=== PATIENT | male | born 2000 | race Caucasian/White ===

== ENCOUNTER 2023-04-09 02:01 | Observation (INO) | payer BC, SELFPAY ==
[2023-04-09 02:48] LABS: Absolute Lymphocytes (CBC) 1.9 K/uL (0.7-4.9); Hematocrit 43.9 % (39.6-49.0); Lymphocytes % 15.4 % (15.3-44.8); MCV 84.2 fL (80-100); MPV 8.6 fL (7.6-11.3); Platelets 209 thou/uL (152-406); RBC Red Blood Cell Count 5.21 M/uL (4.33-5.43)
[2023-04-09] MEDS ORDERED: MORPHINE 4 MG/ML SYR ONE ×2 (02:55→06:45)
[2023-04-09] MEDS ORDERED: PROMETHAZINE INJ 25 MG/ML AMP ONE (02:55)
[2023-04-09] MEDS ORDERED: NA CHLORIDE 0.9% 1,000 ML ONE ×2 (02:55→04:09)
[2023-04-09 03:05] LABS: Albumin 4.3 g/dL (3.4-5.0); Bilirubin Total 1.2 mg/dL (0.2-1.0); Potassium 3.9 mEq/L (3.5-5.1); Protein, Total 7.8 g/dL (6.4-8.2)
[2023-04-09 03:42] LABS: Specific Gravity 1.015 (1.005-1.030); Urine Bilirubin NEGATIVE (Negative); Urine Blood Negative (Negative); Urine Clarity Clear (Clear); Urine Color Colorless (Yellow); Urine Glucose NEGATIVE (Negative); Urine Protein NEGATIVE (Negative); Urine Urobilinogen Normal (Normal)
--- NOTE | 2023-04-09 06:03 | EDPHYS ---
Physician Documentation [facility] Name: Antionette Farrell Age: 23 yrs Sex: Male : 2000 Arrival Date: 04/09/2023 Time: 02:01 Bed 18 Private MD: ED Physician Francisco Javier Lopez HPI: 04/09 02:30 This 23 yrs old Male presents to ER via Ambulatory with complaints of Abdominal Pain, cp Fever. 02:30 The patient presents with abdominal pain in the lower abdomen. Onset: The cp symptoms/episode began/occurred yesterday, and became worse today. The symptoms do not radiate. Associated signs and symptoms: Pertinent negatives: chest pain, constipation, diarrhea, dysuria, fever, testicular pain, vomiting. The symptoms are described as constant. Historical: - Allergies: 02:17 PENICILLINS; pf1 02:17 Zofran; pf1 02:17 Bactrim; pf1 - PMHx: 02:17 None; pf1 - PSHx: 02:17 None; pf1 - Immunization history:: Adult Immunizations up to date, Client reports having NOT received the Covid vaccine. Last tetanus immunization: < 10 years ago Flu vaccine is not up to date. - Social history:: Smoking status: Patient denies any tobacco usage or history of. Patient uses alcohol, but reports only rare drinking. Patient/guardian denies using street drugs. ROS: 02:33 Constitutional: Negative for body aches, chills, fever, poor PO intake, cp 02:33 Eyes: Negative for injury, pain, redness, and discharge, cp 02:33 ENT: Negative for drainage from ear(s), ear pain, sore throat, difficulty swallowing, difficulty handling secretions, 02:33 Respiratory: Negative for cough, shortness of breath, wheezing, 02:33 Abdomen/GI: Positive for abdominal pain, Negative for vomiting, diarrhea, constipation, 02:33 Back: Negative for injury or acute deformity, pain at rest, pain with movement, 02:33 : Negative for urinary symptoms, flank pain, testicular pain 02:33 Neuro: Negative for altered mental status, dizziness, headache, weakness, 02:33 All other systems are negative, Exam: 02:27 Constitutional: The patient appears in no acute distress, alert, awake, non-toxic, well cp developed, well nourished, 02: Head/Face: Normocephalic, atraumatic. cp 02: Eyes: Periorbital structures: appear normal, Conjunctiva: normal, no exudate, no injection, Sclera: no appreciated abnormality, Lids and lashes: appear normal, bilaterally, 02: ENT: External ear(s): are unremarkable, Nose: is normal, Mouth: Lips: moist, Oral mucosa: pink and intact, moist, Posterior pharynx: is normal, airway is patent, no erythema, no exudate, 02: Chest/axilla: Inspection: normal, : Cardiovascular: Rate: normal, 02: Respiratory: the patient does not display signs of respiratory distress, Respirations: normal, no use of accessory muscles, no retractions, labored breathing, is not present, Breath sounds: are clear throughout, no decreased breath sounds, no stridor, no wheezing, : Abdomen/GI: Inspection: abdomen appears normal, Bowel sounds: active, all quadrants, Palpation: soft, in all quadrants, moderate abdominal tenderness, in the right lower quadrant, rebound tenderness, is not appreciated, voluntary guarding, is elicited in the right lower quadrant, : Back: pain, is absent, ROM is normal, : Neuro: Orientation: to person, place \T\ time. Mentation: is normal, Motor: moves all fours, strength is normal, Vital Signs: 02:07 BP 147 / 68; Pulse 89; Resp 16; Temp 98.4; Pulse Ox 99% on R/A; Weight 119.29 kg; pf1 Height 5 ft. 5 in. ; Pain 8/10; 03:40 BP 150 / 90; Pulse 103; Resp 18; Pulse Ox 100% ; jj7 04:40 BP 122 / 61; Pulse 96; Resp 17; Pulse Ox 98% ; jj7 05:45 BP 105 / 47; Pulse 88; Resp 19; Pulse Ox 95% ; jj7 06:46 BP 123 / 63; Pulse 90; Resp 18; Pulse Ox 98% ; jj7 07:50 BP 117 / 52; Pulse 83; Resp 16 S; Pulse Ox 97% on R/A; kc6 02:07 Body Mass Index 43.77 (119.29 kg, 165.1 cm) pf1 02:07 Pain Scale: Adult pf1 MDM: 02:09 Patient medically screened. cp 05:53 Data reviewed: vital signs, nurses notes, lab test result(s), radiologic studies, CT sp4 scan. ED course: COMPARISON: None available for comparison. FINDINGS: Lung bases: Clear Liver: Unremarkable Gallbladder and biliary system: Unremarkable Pancreas: Unremarkable Spleen: Unremarkable Adrenals: Unremarkable Kidneys: Normal renal cortical enhancement. No calculi. No hydronephrosis. GI: No obstruction. No appreciable mucosal thickening. Appendix: The distal end of the appendix is at the upper limits of normal in diameter measuring approximately 7 mm. There is minimal adjacent mesenteric stranding in the right lower quadrant. This may represent early distal appendicitis. Clinical correlation recommended. There is no evidence of free intraperitoneal air or periappendiceal abscess. Urinary bladder: Unremarkable Reproductive: Unremarkable as visualized Lymph nodes: No pathologically enlarged lymph nodes. Peritoneum: Trace fluid in the pelvis, nonspecific and which may be reactive.. No free air. Vessels: No abdominal aortic aneurysm. Abdominal wall: Unremarkable Bones: Unremarkable IMPRESSION: 1. The distal end of the appendix is at the upper limits of normal in diameter measuring approximately 7 mm. There is minimal adjacent mesenteric stranding in the right lower quadrant. This may represent early distal appendicitis. There is no evidence of free intraperitoneal air or periappendiceal abscess. Clinical correlation recommended. 2. Trace fluid in the pelvis, nonspecific and which may be reactive. . 06:01 Differential diagnosis: viral Infection, bacterial infection, URI, UTI, sp4 gastroenteritis. Consideration of Admission/Observation Patient was admitted/placed on observation. Management of patient was discussed with the following: Java Android Developer: General Surgeon . ED course: CT reveals evidence of old acute distal appendicitis. Patient was discussed with Dr. Corcoran from general surgery and admitted for appendectomy. 04/09 02:26 Order name: CBC with Diff; Complete Time: 03:01 cp 04/09 03:01 Interpretation: Normal except: WBC 12.60; WENDY% 74.9; NEUT A 9.4. cp 04/09 02:26 Order name: CMP; Complete Time: 03:44 cp 04/09 02:26 Order name: Lipase; Complete Time: 03:44 cp 04/09 02:26 Order name: Urinalysis w/ reflexes cp 04/09 02:26 Order name: CT Abd/Pelvis - IV Contrast Only cp 04/09 02:26 Order name: IV Saline Lock; Complete Time: 02:42 cp 04/09 02:26 Order name: Labs collected and sent; Complete Time: 02:42 cp 04/09 05:59 Order name: NPO; Complete Time: 06:38 sp4 Administered Medications: 02:53 Drug: NS 0.9% IV 1000 ml IV at 1 bolus Per protocol; 1000 mL bolus Route: IV; Rate: 1 ap3 bolus; Site: right antecubital; 03:40 Follow up: IV Status: Completed infusion jj7 04:13 Follow up: IV Status: Completed infusion j7 02:53 Drug: morphine IVP or IV 4 mg IVP once over 4 mins Route: IVP; Infused Over: 4 mins; ap3 Site: right antecubital; 03:45 Follow up: Response: Pain is decreased j7 02:53 Drug: Promethazine IVP 12.5 mg IVP once Route: IVP; Site: right antecubital; ap3 03:45 Follow up: Response: No adverse reaction j7 03:58 Drug: NS 0.9% IV 1000 ml IV at 1 bolus Per protocol; 1000 mL bolus Route: IV; Rate: 1 jj7 bolus; Site: right antecubital; 07:13 Follow up: Response: No adverse reaction; IV Status: Completed infusion; IV Intake: kc6 1000ml 06:38 Drug: Ondansetron IVP 4 mg IVP once; over 2 minutes Route: IVP; Site: right antecubital;jj7 07:14 Follow up: Response: No adverse reaction; Nausea is decreased; Vomiting decreased kc6 06:39 Drug: morphine IVP or IV 4 mg IVP once over 4 mins Route: IVP; Infused Over: 4 mins; jj7 Site: right antecubital; 07:14 Follow up: Response: No adverse reaction; Pain is decreased; RASS: Alert and Calm (0) kc6 06:44 Drug: metroNIDAZOLE IVPB 500 mg 100 ml IVPB at 200 ml/hr once over 30 mins Volume: 100 jj7 ml; Route: IVPB; Rate: 200 ml/hr; Infused Over: 30 mins; Site: right antecubital; 07:19 Follow up: Response: No adverse reaction; IV Status: Completed infusion; IV Intake: kc6 100ml 07:13 Drug: Ciprofloxacin IVPB 400 mg 200 ml IVPB once over 60 mins Volume: 200 ml; Route: kc6 IVPB; Infused Over: 60 mins; Site: right antecubital; 07:47 Follow up: Response: No adverse reaction; IV Status: Completed infusion; IV Intake: kc6 200ml 07:13 Drug: D5-1/2 NS with KCl IV 20 mEq/L 1000 ml IV at 125 ml/hr continuous Route: IV; kc6 Rate: 125 ml/hr; Site: right antecubital; 07:47 Follow up: Response: No adverse reaction; IV Status: Infusion continued upon admission kc6 Disposition: 06:01 Co-signature as Attending Physician, Francisco Javier Lopez MD I agree with the assessment sp4 and plan of care. I reviewed the patient's care provided by Advanced Practice Provider \T\ agree w/ the diagnosis \T\ care plan. I personally saw the pt \T\ performed a substantive portion of the visit, incldng all aspects of the (History/Exam/Medical Decision Making). Disposition Summary: 04/09/23 06:02 Hospitalization Ordered Notes: Hospitalization Status: Observation sp4 Provider: Tomas Corcoran sp4 Location: Telemetry/[facility] (observation) sp4 Condition: Stable sp4 Problem: new sp4 Symptoms: are unchanged sp4 Bed/Room Type: Standard sp4 Room Assignment: 223(04/09/23 07:41) eb Diagnosis - Unspecified acute appendicitis sp4 Forms: - Medication Reconciliation Form sp4 - SBAR form sp4 - Leadership Thank You Letter sp4 Signatures: Dispatcher [employer] Jeronimo Maravilla PA PA cp Prokisch, Amanda RN RN [id number] Halina Sultana Kaitlyn RN RN kc6 Guillermina Unger RN RN jj7 Mandi Huerta RN RN pf1 Francisco Javier Lopez MD MD sp4 Corrections: (The following items were deleted from the chart) 07:41 06:02 sp4 eb
--- NOTE | 2023-04-09 06:03 | ER ---
Nurse's Notes [facility] Name: Antionette Farrell Age: 23 yrs Sex: Male : 2000 Arrival Date: 04/09/2023 Time: 02:01 Bed 18 Private MD: Diagnosis: Unspecified acute appendicitis Presentation: 04/09 02:07 Chief complaint: Patient states: RLQ pain of 8 that radiates to LLQ with nausea,onset pf1 0000. 02:07 Coronavirus screen: Vaccine status: Patient reports being unvaccinated. Ebola Screen: pf1 Patient negative for fever greater than or equal to 101.5 degrees Fahrenheit, and additional compatible Ebola Virus Disease symptoms. Initial Sepsis Screen: Does the patient meet any 2 criteria? No. Patient's initial sepsis screen is negative. Does the patient have a suspected source of infection? No. Patient's initial sepsis screen is negative. Risk Assessment: Do you want to hurt yourself or someone else? Patient reports no desire to harm self or others. 02:07 Method Of Arrival: Ambulatory pf1 02:07 Acuity: JUNIOR 3 pf1 Historical: - Allergies: 02:17 PENICILLINS; pf1 02:17 Zofran; pf1 02:17 Bactrim; pf1 - PMHx: 02:17 None; pf1 - PSHx: 02:17 None; pf1 - Immunization history:: Adult Immunizations up to date, Client reports having NOT received the Covid vaccine. Last tetanus immunization: < 10 years ago Flu vaccine is not up to date. - Social history:: Smoking status: Patient denies any tobacco usage or history of. Patient uses alcohol, but reports only rare drinking. Patient/guardian denies using street drugs. Screenin:55 [facility] ED Fall Risk Assessment (Adult) History of falling in the last 3 months, ap3 including since admission No falls in past 3 months (0 pts). Abuse screen: Denies threats or abuse. Nutritional screening: No deficits noted. Tuberculosis screening: No symptoms or risk factors identified. Assessment: 02:54 Pain: Complains of pain in abdomen. Pain: Pain currently is 8 out of 10 on a pain ap3 scale. at worst was 10 out of 10 on a pain scale. Neuro: Level of Consciousness is awake, alert, obeys commands, Oriented to person, place, time, situation. Cardiovascular: Patient's skin is warm and dry. Respiratory: Airway is patent Respiratory effort is even, unlabored, Respiratory pattern is regular, symmetrical. GI: Abdomen is non-distended, Reports lower abdominal pain, upper abdominal pain, nausea, vomiting. 07:00 Reassessment: Patient appears in no apparent distress at this time. Patient and/or kc6 family updated on plan of care and expected duration. Pain level reassessed. Patient is alert, oriented x 3, equal unlabored respirations, skin warm/dry/pink. Patient denies pain at this time. Patient states feeling better. Patient states symptoms have improved. 07:09 Reassessment: REPORT GIVEN TO LATRICE OSBORNE. jj7 07:09 Reassessment: REPORT GIVEN TO LATRICE OSBORNE. jj7 07:50 Reassessment: attempted to call report to nurse Lopez, unavailable at this time. 6 Vital Signs: 02:07 BP 147 / 68; Pulse 89; Resp 16; Temp 98.4; Pulse Ox 99% on R/A; Weight 119.29 kg; pf1 Height 5 ft. 5 in. ; Pain 8/10; 03:40 BP 150 / 90; Pulse 103; Resp 18; Pulse Ox 100% ; jj7 04:40 BP 122 / 61; Pulse 96; Resp 17; Pulse Ox 98% ; jj7 05:45 BP 105 / 47; Pulse 88; Resp 19; Pulse Ox 95% ; jj7 06:46 BP 123 / 63; Pulse 90; Resp 18; Pulse Ox 98% ; jj7 07:50 BP 117 / 52; Pulse 83; Resp 16 S; Pulse Ox 97% on R/A; kc6 02:07 Body Mass Index 43.77 (119.29 kg, 165.1 cm) pf1 02:07 Pain Scale: Adult pf1 ED Course: 02:04 Patient arrived in ED. jj6 02:09 Jeronimo Saldivar PA is PHCP. cp 02:09 Francisco Javier Lopez MD is Attending Physician. cp 02:17 Triage completed. pf1 02:33 Guillermina Unger, DYLON is Primary Nurse. jj7 02:42 CBC with Diff Sent. cg3 02:43 CMP Sent. cg3 02:43 Inserted saline lock: 20 gauge in right antecubital area, using aseptic technique. cg3 Blood collected. 02:55 Patient has correct armband on for positive identification. Bed in low position. Call ap3 light in reach. Side rails up X2. Pulse ox on. NIBP on. Door closed. Noise minimized. 02:55 Arm band placed on right wrist. ap3 03:45 Urinalysis w/ reflexes Sent. j7 03:58 CT Abd/Pelvis - IV Contrast Only In Process Unspecified. EDMS 06:02 Tomas Corcoran MD is Hospitalizing Provider. sp4 07:00 Report received from DYLON HART. kc6 07:59 No provider procedures requiring assistance completed. Patient admitted, IV remains in kc6 place. Administered Medications: 02:53 Drug: NS 0.9% IV 1000 ml IV at 1 bolus Per protocol; 1000 mL bolus Route: IV; Rate: 1 ap3 bolus; Site: right antecubital; 03:40 Follow up: IV Status: Completed infusion j7 04:13 Follow up: IV Status: Completed infusion j7 02:53 Drug: morphine IVP or IV 4 mg IVP once over 4 mins Route: IVP; Infused Over: 4 mins; ap3 Site: right antecubital; 03:45 Follow up: Response: Pain is decreased j7 02:53 Drug: Promethazine IVP 12.5 mg IVP once Route: IVP; Site: right antecubital; ap3 03:45 Follow up: Response: No adverse reaction j7 03:58 Drug: NS 0.9% IV 1000 ml IV at 1 bolus Per protocol; 1000 mL bolus Route: IV; Rate: 1 jj7 bolus; Site: right antecubital; 07:13 Follow up: Response: No adverse reaction; IV Status: Completed infusion; IV Intake: kc6 1000ml 06:38 Drug: Ondansetron IVP 4 mg IVP once; over 2 minutes Route: IVP; Site: right antecubital;jj7 07:14 Follow up: Response: No adverse reaction; Nausea is decreased; Vomiting decreased kc6 06:39 Drug: morphine IVP or IV 4 mg IVP once over 4 mins Route: IVP; Infused Over: 4 mins; jj7 Site: right antecubital; 07:14 Follow up: Response: No adverse reaction; Pain is decreased; RASS: Alert and Calm (0) kc6 06:44 Drug: metroNIDAZOLE IVPB 500 mg 100 ml IVPB at 200 ml/hr once over 30 mins Volume: 100 jj7 ml; Route: IVPB; Rate: 200 ml/hr; Infused Over: 30 mins; Site: right antecubital; 07:19 Follow up: Response: No adverse reaction; IV Status: Completed infusion; IV Intake: kc6 100ml 07:13 Drug: Ciprofloxacin IVPB 400 mg 200 ml IVPB once over 60 mins Volume: 200 ml; Route: kc6 IVPB; Infused Over: 60 mins; Site: right antecubital; 07:47 Follow up: Response: No adverse reaction; IV Status: Completed infusion; IV Intake: kc6 200ml 07:13 Drug: D5-1/2 NS with KCl IV 20 mEq/L 1000 ml IV at 125 ml/hr continuous Route: IV; kc6 Rate: 125 ml/hr; Site: right antecubital; 07:47 Follow up: Response: No adverse reaction; IV Status: Infusion continued upon admission [facility] Medication: 08:00 VIS not applicable for this client. kc6 Intake: 07:13 IV: 1000ml; Total: 1000ml. kc6 07:19 IV: 100ml; Total: 1100ml. kc6 07:47 IV: 200ml; Total: 1300ml. [facility] Outcome: 06:02 Decision to Hospitalize by Provider. sp4 07:59 Admitted to Med/surg accompanied by tech, via wheelchair, with chart, Report called to beth Lopez RN 07:59 Condition: improved 07:59 Instructed on the need for admit, 08:22 Patient left the ED. eb Signatures: Dispatcher [employer] EDPR Jeronimo Saldivar PA PA cp Prokisch, Amanda RN RN ap3 Halina Sultana Jennifer jj6 Latrice Waterman RN RN [email or web address] Guillermina Unger RN RN jj7 Mandi Huerta RN RN [email or web address] Francisco Javier Lopez MD MD sp4 Anay Duke 3
[2023-04-09] MEDS ORDERED: ONDANSETRON 4 MG/2 ML VIAL ONE ×2 (06:45→13:12)
[2023-04-09] MEDS ORDERED: CIPROFLOXACIN 400mg IV 400 MG/200 ML BAG IV ONE (06:45)
[2023-04-09] MEDS ORDERED: METRONIDAZOLE 500mg IVPB 500 MG/100 ML BAG IV ONE ×2 (06:45→13:20)
[2023-04-09] MEDS ORDERED: D5.45NS W/KCL 20MEQ 1,000 ML IV ONE (06:46)
[2023-04-09 08:19] VITALS: BMI 43.7
[2023-04-09] MEDS ORDERED: D5.45NS W/KCL 20MEQ 1,000 ML IV SCH (09:47)
[2023-04-09] MEDS ORDERED: MORPHINE 4 MG/ML SYR IV PRN (09:47)
[2023-04-09] MEDS ORDERED: ONDANSETRON 4 MG/2 ML VIAL IV PRN (09:47)
[2023-04-09] MEDS ORDERED: Ringers Lactate 1,000 ML IV ONE (12:58)
[2023-04-09] MEDS ORDERED: MIDAZOLAM HCL 2 MG/2 ML INJ ONE (13:11)
[2023-04-09] MEDS ORDERED: propofoL 200 MG/20 ML VIAL IV ONE (13:11)
[2023-04-09] MEDS ORDERED: LIDOCAINE 2% MPF 5 ML VIAL ONE (13:11)
[2023-04-09] MEDS ORDERED: FENTANYL CITR 100 MCG/2 ML ONE ×2 (13:11→14:10)
[2023-04-09] MEDS ORDERED: GLYCOPYRROLATE 0.2 MG/ML SYR ONE (13:16)
[2023-04-09] MEDS ORDERED: ROCURONIUM 50 MG/5 ML VIAL IV ONE (13:16)
[2023-04-09] MEDS ORDERED: NEOSTIGMINE 1 MG/ML -10 ML VIAL ONE (13:19)
[2023-04-09] MEDS ORDERED: dexAMETHasone 10 MG/ML VIAL ONE (14:07)
--- NOTE | 2023-04-09 14:23 | P.BOP ---
Preoperative diagnosis: acute appendicitis, acute abd pain Postoperative diagnosis: same Primary procedure: Laparoscopic appendectomy Estimated blood loss: <10cc Specimen: theodore Findings: as aboe, partially retrocecal appendix Anesthesia: General Complications: None Transferred to: Recovery Room Condition: Good
[2023-04-09] MEDS ORDERED: HYDROCODONE/APAP 5/325 MG TAB PO PRN (14:26)
[2023-04-09] MEDS ORDERED: CIPROFLOXACIN 400mg IV 400 MG/200 ML BAG IV SCH ×2 (15:00→21:00)
[2023-04-09] MEDS: HYDROMORPHONE HCL 1 MG/ML INJ ONE ×2 (15:05→15:10)
--- NOTE | 2023-04-09 15:21 | RAD REPORT ---
EXAM DESCRIPTION: CT - Abdomen Pelvis W Contrast - 04/09/2023 6:22 am CLINICAL HISTORY: Right lower abdomen pain TECHNIQUE: Contiguous axial images obtained through the abdomen and pelvis . IV contrast. Coronal an d sagittal reformatted images were provided. This exam was performed according to our departmental dose-optimization program, which includes autom ated exposure control, adjustment of the mA and/or kV according to patient size and/or use of iterati ve reconstruction technique. COMPARISON: None available for comparison. FINDINGS: Lung bases: Clear Liver: Unremarkable Gallbladder and biliary system: Unremarkable Pancreas: Unremarkable Spleen: Unremarkable Adrenals: Unremarkable Kidneys: Normal renal cortical enhancement. No calculi. No hydronephrosis. GI: No obstruction. No appreciable mucosal thickening. Appendix: The distal end of the appendix is at the upper limits of normal in diameter measuring appro ximately 7 mm. There is minimal adjacent mesenteric stranding in the right lower quadrant. This may r epresent early distal appendicitis. Clinical correlation recommended. There is no evidence of free in traperitoneal air or periappendiceal abscess. Urinary bladder: Unremarkable Reproductive: Unremarkable as visualized Lymph nodes: No pathologically enlarged lymph nodes. Peritoneum: Trace fluid in the pelvis, nonspecific and which may be reactive.. No free air. Vessels: No abdominal aortic aneurysm. Abdominal wall: Unremarkable Bones: Unremarkable IMPRESSION: 1. The distal end of the appendix is at the upper limits of normal in diameter measuri ng approximately 7 mm. There is minimal adjacent mesenteric stranding in the right lower quadrant. Th is may represent early distal appendicitis. There is no evidence of free intraperitoneal air or peria ppendiceal abscess. Clinical correlation recommended. 2. Trace fluid in the pelvis, nonspecific and which may be reactive. Electronically signed by: Tyron Mercado MD 04/09/2023 4:27 AM CDT Due to temporary technical issues with the PACS/Fluency reporting system, reports are being signed by the in house radiologists without review as a courtesy to insure prompt reporting. The interpreting radiologist is fully responsible for the content of the report.
[2023-04-09 15:33] VITALS: BP 139/48; TEMP 97.2; O2SAT 96
[2023-04-09] MEDS ORDERED: HYDROMORPHONE HCL 1 MG/ML INJ ONE (15:33)
[2023-04-09] MEDS ORDERED: METRONIDAZOLE 500mg IVPB 500 MG/100 ML BAG IV SCH (17:00)
--- NOTE | 2023-04-09 19:01 | HP ---
Date of Admission: 04/09/2023 Diagnosis: Acute appendicitis. History Of Present Illness: This is a case of a 23-year-old patient comes to us complaining of periu mbilical and right lower quadrant tenderness associated with nausea. The pain did not get better. Kat carrillo comes to the ER diagnosed with acute appendicitis and a surgical evaluation was requested. He janett es any dysuria, hematuria, hematochezia. Denies any recent travel out of the country. Denies any [facility] member sick at home. Review of Systems: Ten points otherwise unremarkable. Past Medical History: None. Allergies: PENICILLIN, BACTRIM, AND ZOFRAN. Past Surgical History: Orthopedic. Social History: He does not smoke. He does not drink alcohol. Family History: Noncontributory. Physical Examination: General: The patient is awake, alert. HEENT: Pupils are equal and reactive. Anicteric. Neck: Supple. Chest: Clear. Heart: S1, S2. Abdomen: Right lower quadrant tenderness with Rovsing sign positive. Rectal: Deferred. Pelvic: Deferred. Extremities: Good capillary refill. Laboratory Data: Blood work shows WBC count of 12.6, hemoglobin of 15, platelets of 209, and potassi um 3.9, creatinine is 1.37. CAT scan of the abdomen and pelvis interpreted by radiologist as acute a ppendicitis. Assessment: This is a 23-year-old patient with acute appendicitis. The benefits, alternatives, and risks of laparoscopic possible open appendectomy fully explained, which include, but not limited to i nfection, bleeding, damage to adjacent structures, anesthesia complications, abscess, NE, and even de ath. He also understands this may not relieve any symptoms. He might need more than one surgical in tervention. He understood, signed a consent, and OR was immediately called. NABEEL/DEJUAN Voice ID: [id number]
--- NOTE | 2023-04-09 20:55 | OP ---
Date of Procedure: 04/09/2023 Surgeon: Tomas Corcoran MD Preoperative Diagnoses: Acute appendicitis, acute abdominal pain. Postoperative Diagnoses: Acute appendicitis, acute abdominal pain. Procedure: Laparoscopic appendectomy. Estimated Blood Loss: Less than 10 cc. Specimen: Appendix. Finding: As above. Partially retrocecal appendix with inflammation. Anesthesia: General plus local. Indications: This is the case of a 23-year-old patient who comes to us with acute abdominal pain, di agnosed with acute appendicitis. The benefits, alternatives, and risks of laparoscopic, possible ope n appendectomy were fully explained, which include, but not limited to infection, bleeding, damage to adjacent structures, anesthesia complication, DE, and even . He also understands this may not relieve symptoms. He might need more than one surgical intervention. He understood, signed a consen t. Procedure In Detail: Patient was brought to the operating room, placed in supine position. Anesthes ia was induced without complication. Abdominal area was prepped and draped in sterile fashion Marcai ne 0.5% was injected for local anesthetic followed by sharp incision of the skin in the infraumbilica l region. Incision was carried down to fascia, which was opened under direct vision. Peritoneum was encountered, opened under direct vision. Vicryl #1 placed inside the fascia. Bren trocar was car efully introduced. Pneumoperitoneum was obtained. When we looked at the area of the appendix, we no ticed this partially retrocecal, many adhesions, and the white line of Toldt present in that area. A ll for us to mobilize this, we have to use LigaSure, mobilize partially the cecum to be able to acces s the base of the appendix. This was done with the help of LigaSure. Obviously, this was after inse rting 5 mm trocars x2 in the suprapubic and left lower quadrant area under direct vision visualizatio n. Once we have the mesoappendix also transected with a LigaSure, then we proceeded to clear the bas e of appendix and we noticed to be spared from the inflammation that is in the distal appendix and th en we transected that area with Endo-SHERRY 45 mm nonvascular. Appendix was removed from abdominal cavi ty using the EndoCatch through the umbilical incision. Area was inspected once again. No bowel leak . No bleeding. Profuse irrigation was done and suctioned. Patient tolerated the procedure well. A t that moment, I proceeded to remove the trocars under direct vision, deflated pneumoperitoneum, clos ed the fascia with #1 Vicryl. Irrigated subcutaneous tissue and closed the skin with manuel. Spong e count, instrument counts were correct. Patient tolerated the procedure well. Patient was sent to recovery in stable condition. NABEEL/DEJUAN Voice ID: [id number] Report ID: [id number]
--- NOTE | 2023-04-12 12:34 | DS ---
Date of Discharge: 04/09/2023 Diagnoses: Acute appendicitis, acute abdominal pain. Procedure: Laparoscopic appendectomy. Condition: Stable. Disposition: Home if he tolerates a dinner. Activity: As tolerated. No heavy lifting. Followup: In my office in 1 week. Call for appointment [phone]. NABEEL/DEJUAN Voice ID: [id number] Report ID: [id number]
== END 2023-04-09 19:25 | disposition home or self-care (01) ==
LOC: ER 02:01 → ERHOLD 06:29 → 2ND 07:54
PROVIDERS: ADMIT Surgery; ATTEND Surgery
PROC: 0DTJ4ZZ Resection of Appendix, Percutaneous Endoscopic Approach (ICD-10-PCS; principal; 2023-04-09 13:15)
DX: K35.80 Unspecified acute appendicitis (principal); R10.9 Unspecified abdominal pain; Z88.0 Allergy status to penicillin; Z88.1 Allergy status to other antibiotic agents; Z88.8 Allergy status to other drugs, medicaments and biological substances
CPT/HCPCS: 96365; 96361; 85025; 36415; 88304; 81003; 83690; 80053; 74177; 96375; 99285; 44970; Q9967; J2550; J2704; J2710; J2001; J2250; J3010 ×2; J1100; J1170 ×2; J2405 ×2; J0744; G0378 ×4; J7120; J7030 ×2